=== PATIENT | female | born 1955 | race Two or more races ===

== ENCOUNTER 2020-12-29 07:45 | Day surgery (SDC) | payer OTHER | END 2020-12-29 18:15 | disposition home or self-care (01) | LOC: CIR.AMB 07:45 | PROVIDERS: ATTEND Otolaryngology Otology & Neurotology | DX: H90.6 Mixed conductive and sensorineural hearing loss, bilateral (principal); H80.82 Other otosclerosis, left ear; Z20.822 Contact with and (suspected) exposure to COVID-19 ==